=== PATIENT | female | born 1985 | race Caucasian/White ===

== ENCOUNTER 2017-04-07 11:16 | Emergency (ER) | payer MEDICAID ==
[2017-04-07 11:27] VITALS: BP 113/74; PULSE 82; RESP 18; TEMP 98; O2SAT 97
--- NOTE | 2017-04-07 11:39 | EDPHY ---
HPI/HX/ROS/PE/MDM Narrative: CHIEF COMPLAINT: "Pain everywhere" HPI: The patient is a 32-year-old female with a history of chronic abdominal pain and fibromyalgia. She states that she has been experiencing sharp pain essentially over her whole body including both arms and both legs. Last night she also experience the sensation in her head. Patient has been seen by her primary care doctor a few weeks ago and an MRI was scheduled. The patient apparently tried to do the MRI but did not feel ready to undergo the procedure at that time. She tells me this was to rule out MS. The patient denies change in vision, numbness, weakness or tingling of any body part, chest pain, fever, vomiting, new abdominal pain, recent trauma. REVIEW OF SYSTEMS: Aside from elements discussed in the HPI, a comprehensive 10-point review of systems was reviewed and is negative. PMH: Includes fibromyalgia, chronic abdominal pain, sphincter of Oddi dysfunction. SOCIAL HISTORY: Denies alcohol or drug abuse. Mother for. PHYSICAL EXAM: General:Patient is alert, in no acute distress. ENT:Eyes are normal to inspection. ENT inspection normal. Neck: Normal inspection. Full range of motion. Respiratory:No respiratory distress. Breath sounds normal bilaterally. Cardiovascular: Regular rate and rhythm. Strong peripheral pulses. Normal cap refill. Abdomen:The abdomen is nontender to palpation. There are no peritoneal signs. There are normal bowel sounds. Back: Normal to inspection. No tenderness to palpation. Skin: Normal color. No rash. Warm and dry. Numerous tattoos. Extremities: Normal appearance. Full range of motion. Neuro: Oriented x3. Normal motor function. Normal sensory function. No pronator drift. Cranial nerves intact. 5/5 strength to all joints upper and lower extremities bilaterally. Normal gait. MDM: This patient presents essentially with total body pain. There are no localizing features common nor any neurologic deficits. I offered her a CT scan of the head but she declines this. She has an MRI brain already scheduled which I think would be the best test for her. I do not think blood work is indicated. Of note, the patient has a history of multiple outpatient prescriptions for narcotics. Her initial triage complaint was her request for pain medications. She did not request pain medicine specifically to me. She is comfortable with the plan to be discharged and requested no additional interventions. Etiology of her complaints is unclear, but I see no evidence of subarachnoid hemorrhage, CVA, brain tumor, acute head trauma or infectious process. The patient understands that by refusing CT scan further workup that I am unable to rule out potentially serious life-threatening injury. General Initial Vital Signs: Initial Vital Signs Temperature (C) 36.6 C 04/07/17 11:25 Heart Rate 82 04/07/17 11:25 Respiratory Rate 18 04/07/17 11:25 Blood Pressure 113/74 04/07/17 11:25 O2 Sat (%) 97 04/07/17 11:25 O2 Delivery Mode Room Air Allergies/Adverse Reactions: morphine [Morphine] Allergy (Severe, Verified 07/14/15 09:43) Hives prochlorperazine edisylate [From Compazine] Allergy (Severe, Verified 07/14/15 09:43) HIVES, SHAKES VOMITING prochlorperazine maleate [From Compazine] Allergy (Severe, Verified 07/14/15 09: 43) HIVES, SHAKES VOMITING promethazine HCl [From Phenergan] Allergy (Severe, Verified 07/14/15 09:43) fentanyl [Fentanyl] Allergy (Intermediate, Verified 07/14/15 09:43) NAUSEA Home Medications: Medication Instructions Recorded OXYCODONE HCL 15 mg PO PRN PRN 09/17/11 Departure - Departure Disposition: Home, Routine, Self-Care Clinical Impression: Headache Condition: Good Instructions: Acute Headache (ED) Additional Instructions: Follow-up with your primary doctor within 72 hours for re-evaluation. Return to the ED for fever, severe pain, numbness, weakness or change in vision. We recommend you undergo an MRI as planned, as soon as possible. Referrals: NONE *PRIMARY CARE P,. [Unknown] - As per Instructions
== END 2017-04-07 11:42 | disposition home or self-care (01) ==
LOC: CED 11:16
DX: M54.32 Sciatica, left side (principal); M54.9 Dorsalgia, unspecified

== ENCOUNTER 2017-07-29 11:42 | Emergency (ER) | payer MEDICAID ==
[2017-07-29 11:52] VITALS: BP 109/67; PULSE 84; RESP 16; TEMP 98.1; O2SAT 96
--- NOTE | 2017-07-29 12:06 | EDPHY ---
H & P Stated Complaint: vagianal irritation/pain x 1 week; now worse with "bumps"; no discharge Time Seen by Provider: 07/29/17 11:59 HPI/ROS: CHIEF COMPLAINT: Vaginal pain HISTORY OF PRESENT ILLNESS: The patient is a 32-year-old female who comes to the emergency department complaining of vaginal pain that began last night and is worsened this morning. She denies discharge but states that she does have some bumps on her labia. She last had sex about a month ago with her but they are and she is not sure that he has not slept with anyone else. She has not had any urinary symptoms. She denies risk of . She states that her tubes are tied. No abdominal pain. No fever. No GI symptoms. No bleeding. REVIEW OF SYSTEMS: Constitutional: denies: chills, fever, recent illness, recent injury EENTM: denies: blurred vision, double vision, nose congestion Respiratory: denies: cough, shortness of breath Cardiac: denies: chest pain, irregular heart rate, lightheadedness, palpitations Gastrointestinal/Abdominal: denies: abdominal pain, diarrhea, nausea, vomiting, blood streaked stools Genitourinary: See HPI Musculoskeletal: denies: joint pain, muscle pain Skin: denies: lesions, rash, jaundice, bruising Neurological: denies: headache, numbness, paresthesia, tingling, dizziness, weakness Hematologic/Lymphatic: denies: blood clots, easy bleeding, easy bruising Immunologic/allergic: denies: HIV/AIDS, transplant EXAM: GENERAL: Well-appearing, well-nourished and in no acute distress. HEAD: Atraumatic, normocephalic. EYES: Pupils equal round and reactive to light, extraocular movements intact, sclera anicteric, conjunctiva are normal. ENT: TMs normal, nares patent, oropharynx clear without exudates. Moist mucous membranes. NECK: Normal range of motion, supple without lymphadenopathy or JVD. LUNGS: Breath sounds clear to auscultation bilaterally and equal. No wheezes rales or rhonchi. HEART: Regular rate and rhythm without murmurs, rubs or gallops. ABDOMEN: Soft, nontender, normoactive bowel sounds. No guarding, no rebound. No masses appreciated. : 1 single visible external lesion, dark pigmentation, slightly tender. Macular, vaginal tenderness with exam, mild cervical motion tenderness, white discharge BACK: No CVA tenderness, no spinal tenderness, step-offs or deformities EXTREMITIES: Normal range of motion, no pitting or edema. No clubbing or cyanosis. NEUROLOGICAL: Cranial nerves II through XII grossly intact. Normal speech, normal gait. 5/5 strength, normal movement in all extremities, normal sensation PSYCH: Normal mood, normal affect. SKIN: Warm, dry, normal turgor, no visible rashes or lesions. Source: Patient Exam Limitations: No limitations - Personal History LMP (Females 10-55): Over 28 Days Ago Current Tetanus/Diphtheria Vaccine: Yes - Medical/Surgical History Hx Asthma: No Hx Chronic Respiratory Disease: No Hx Diabetes: No Hx Cardiac Disease: No Hx Renal Disease: No Hx Cirrhosis: No Hx Alcoholism: No Hx HIV/AIDS: No Hx Splenectomy or Spleen Trauma: No Other PMH: GALL BLADDER, SPHINCTEROTOMY, JAW SURG, C/S, APPY, TONSILECTOMY, ABD ADHESIONS, FIBROMYALGIA - Family History Significant Family History: No pertinent family hx - Social History Smoking Status: Former smoker Alcohol Use: Sober Constitutional: Initial Vital Signs Temperature (C) 36.7 C 07/29/17 11:48 Heart Rate 84 07/29/17 11:48 Respiratory Rate 16 07/29/17 11:48 Blood Pressure 109/67 07/29/17 11:48 O2 Sat (%) 96 07/29/17 11:48 O2 Delivery Mode Room Air Allergies/Adverse Reactions: morphine [Morphine] Allergy (Severe, Verified 07/29/17 11:53) Hives prochlorperazine edisylate [From Compazine] Allergy (Severe, Verified 07/29/17 11:53) HIVES, SHAKES VOMITING prochlorperazine maleate [From Compazine] Allergy (Severe, Verified 07/29/17 11: 53) HIVES, SHAKES VOMITING promethazine HCl [From Phenergan] Allergy (Severe, Verified 07/29/17 11:53) fentanyl [Fentanyl] Allergy (Intermediate, Verified 07/29/17 11:53) NAUSEA Home Medications: Medication Instructions Recorded Azithromycin [Zithromax Oral 1 gm PO ONCE #1 packet 07/29/17 Liquid] Cefixime [Suprax] 400 mg PO ONCE #1 capsule 07/29/17 Doxycycline Hyclate [Vibramycin] 100 mg PO BID #30 cap 07/29/17 metroNIDAZOLE [Flagyl] 500 mg PO BID #20 tab 07/29/17 Medical Decision Making ED Course/Re-evaluation: The patient has mild cervical motion tenderness and discharge. I will treat her with antibiotics. She will follow up with her regular physician. We discussed indications for returning. She has no abdominal tenderness on exam. 12:30 p.m. the patient is refusing antibiotics here especially the IM injection. She would prefer to get the results and then the treatment. I will prescribe her azithromycin and Suprax for gonorrhea, doxycycline for Chlamydia and Flagyl for bacterial vaginosis. She was given this information in Nursing instructions Differential Diagnosis: Partial list of the Differential diagnosis considered include but were not limited to; pelvic inflammatory disease, abscess and although unlikely based on the history and physical exam, I also considered , urinary tract infection, constipation, diarrhea, ovarian cyst, ovarian torsion. I discussed these differential diagnoses and the plan with the patient as well as the usual and expected course. The patient understands that the diagnosis is provisional and that in medicine we are not always correct and that further workup is often warranted. Usual and customary warnings were given. All of the patient's questions were answered. The patient was instructed to return to the emergency department should the symptoms at all worsen or return, otherwise to followup with the physician as we discussed. - Data Points Laboratory Results: 07/29/17 07/29/17 07/29/17 12:20 12:20 12:20 [place] species DNA Pending C.trachomatis RNA (TMA) Pending Gardnerella DNA Probe Pending HSV Source Description Pending HSV I DNA PCR Pending HSV II DNA PCR Pending N.gonorrhoeae RNA (TMA) Pending Trichomonas DNA Probe Pending Medications Given: Discontinued Medications Ceftriaxone Sodium (Rocephin 250mg Vial) 250 mg IM EDNOW ONE PRN Reason: Protocol Stop: 07/29/17 12: Last Admin: 07/29/17 12:38 Dose: Not Given Doxycycline Hyclate (Doxycycline Hyclate) 100 mg PO EDNOW ONE PRN Reason: Protocol Stop: 07/29/17 12:17 Last Admin: 07/29/17 12:38 Dose: Not Given Metronidazole (Flagyl) 500 mg PO EDNOW ONE PRN Reason: Protocol Stop: 07/29/17 12:17 Last Admin: 07/29/17 12:38 Dose: Not Given Departure - Departure Disposition: Home, Routine, Self-Care Clinical Impression: Pelvic inflammatory disease (PID) Condition: Fair Instructions: Pelvic Inflammatory Disease (ED) Additional Instructions: You have refused antibiotic treatment suggested at this until culture results return. This can take 5 days. You have been given 4 different prescriptions if needed to fill Metronidazole is for a bacterial infection Doxycycline is for Chlamydia Azithromycin and Cefixime are for Gonorrhea We will contact your if any results of your cultures return positive Please follow up with your primary provider as we discussed Referrals: ERMELINDA SHEPHERD,. [Primary Care Provider] - As per Instructions Prescriptions: Azithromycin [Zithromax Oral Liquid] 1 gm PO ONCE #1 packet Cefixime [Suprax] 400 mg PO ONCE #1 capsule Doxycycline Hyclate [Vibramycin] 100 mg PO BID #30 cap metroNIDAZOLE [Flagyl] 500 mg PO BID #20 tab
[2017-07-29] MEDS ORDERED: DOXYCYCLINE HYCLATE 100 MG CAP/TAB PO ONE (12:16)
[2017-07-29] MEDS ORDERED: metroNIDAZOLE 500 MG TAB PO ONE (12:16)
[2017-07-29] MEDS ORDERED: cefTRIAXone 250 MG VIAL IM ONE (12:16)
[2017-07-31 13:16] LABS: CHLAMYDIA AMPLIFICATION GENPRB NEGATIVE (NEGATIVE)
[2017-07-31 21:38] LABS: SPECIMEN SOURCE vaginal
== END 2017-07-29 12:38 | disposition home or self-care (01) ==
LOC: CED 11:42
DX: N73.9 Female pelvic inflammatory disease, unspecified (principal); Z87.891 Personal history of nicotine dependence
CPT/HCPCS: 87529-90; J0696

== ENCOUNTER 2018-08-25 17:02 | Emergency (ER) | payer MEDICAID ==
[2018-08-25] MEDS ORDERED: CEPHALEXIN 500 MG CAP PO ONE (17:48)
--- NOTE | 2018-08-25 17:53 | EDPHY ---
H & P Time Seen by Provider: 08/25/18 17:18 HPI/ROS: CHIEF COMPLAINT: Bump on vagina HISTORY OF PRESENT ILLNESS: 33-year-old female presents emergency department reporting that she has had a painful small bump on the left side of her vagina for approximately week and half. She has been complaining of feeling poorly with headache, nausea, but no fever. She does have a history of fibromyalgia and chronic fatigue syndrome and reports that she frequently feels poorly. She denies fever, chest pain, lesions in her mouth, vomiting, urinary complaints, vaginal discharge, new sexual partners, or prior history of similar symptoms. 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 Since that time she has also been told that she did not have HSV type 2. She has no history of oral herpes simplex. No fever, chest pain, shortness of breath, palpitations, vomiting, diarrhea, urinary complaints, lightheadedness. REVIEW OF SYSTEMS: A comprehensive 10 system review of systems was reviewed and is otherwise negative aside from elements mentioned in the history of present illness. PAST MEDICAL HISTORY: Fibromyalgia. Status post tubal ligation. SOCIAL HISTORY: Nonsmoker, no alcohol, no marijuana, no illicit drug use. Reports no known new sexual partners, has been with the same partner for 8 years. VITAL SIGNS Reviewed by me. GENERAL: Well-developed, well-nourished, resting comfortably in no respiratory distress. Pleasant. Patient looks well. Nontoxic. HEENT: Atraumatic. Eyes: No icterus, no injection. Mouth: moist mucous membranes. No lesions seen on the lips or tongue. No erythema or lesions. Neck : supple with no adenopathy. LUNGS: Clear to auscultation bilaterally, no wheezes, rhonchi or rales. CARDIAC: Regular rate and rhythm, no rubs, murmurs or gallops. ABDOMEN: Soft, mild diffuse tenderness which patient states is common for her to have. Nondistended. No guarding or rebound. BACK: No CVA tenderness. : 4 mm in diameter pustular lesion is present on the labia majora on the left. Tender to palpation. I see no Bartholin's gland cyst. I see no other lesions. It is not ulcerated. No grouped set of lesions. Lesion is not umbilicated or vesicular. Small amount of white vaginal discharge is present on speculum exam. No vaginal. EXTREMITIES: No trauma. No edema. Range of motion is normal throughout. NEURO: Alert and oriented, grossly nonfocal. SKIN: Warm and dry, no rash. PSYCHIATRIC: Normal mentation, no agitation. Smoking Status: Former smoker Constitutional: Initial Vital Signs Temperature (C) 37.1 C 08/25/18 17:18 Heart Rate 80 08/25/18 17:18 Respiratory Rate 14 08/25/18 17:18 Blood Pressure 98/71 L 08/25/18 17:18 O2 Sat (%) 93 08/25/18 17:18 O2 Delivery Mode Room Air Allergies/Adverse Reactions: morphine [Morphine] Allergy (Severe, Verified 08/25/18 17:16) Hives prochlorperazine edisylate [From Compazine] Allergy (Severe, Verified 08/25/18 17:16) HIVES, SHAKES VOMITING prochlorperazine maleate [From Compazine] Allergy (Severe, Verified 08/25/18 17: 16) HIVES, SHAKES VOMITING promethazine HCl [From Phenergan] Allergy (Severe, Verified 08/25/18 17:16) fentanyl [Fentanyl] Allergy (Intermediate, Verified 08/25/18 17:16) NAUSEA Home Medications: Medication Instructions Recorded Cephalexin [Keflex (*)] 500 mg PO TID #21 cap 08/25/18 Oxycodone HCl PRN 08/25/18 Medical Decision Making ED Course/Re-evaluation: Vaginal culture and the BV studies were sent. I discussed with the patient my impression that this appears to be a pustular lesion. Does not to me looked to be herpetic, syphilis, or vaginal warts. May represent vaginal acne, pustule, or folliculitis. Patient does states she had 1 other lesion that seem to be involving hair follicle on her pubic area, which self-resolved. Patient was instructed to use Sitz bath, topical anesthetic, and was offered antibiotics. She declined antibiotics. She declined local I and D of the pustule. She will follow up with her primary care physician next week for the results of the vaginal studies as well as further evaluation of the lesion. Differential Diagnosis: Differential diagnoses for the patient's symptom complex was considered including but not limited to herpes simplex, syphilis, genital warts, Bartholin gland cyst, skin abscess. - Data Points Medications Given: Discontinued Medications Cephalexin HCl (Keflex) 500 mg PO EDNOW ONE PRN Reason: Protocol Stop: 08/25/18 17:49 Last Admin: 08/25/18 18:06 Dose: Not Given Point of Care Test Results: Urine Dip Collection Date 08/25/18 Collection Time 17:50 Specific [place] (1.002-1.030) 1.010 PH (5.0-7.5) 7.0 Leukocytes (Negative) Negative Nitrites (Negative) Negative Protein (Negative) Negative Glucose (Negative) Negative Ketones (Negative) Negative Urobilnogen (0.2-1.0 EU) 0.2 Bilirubin (Negative) Negative Blood (Negative) Negative Departure - Departure Disposition: Home, Routine, Self-Care Clinical Impression: Vulvar papule, Vulvar lesion Condition: Good Instructions: Abscess (ED) Additional Instructions: The lesion on the vulva does not appear to me to be a sexually transmitted disease such as herpes simplex, syphilis, or GC/chlamydia. It appears to be the start of a abscess or pustule. I suggest Sitz baths, which is simply sitting in a warm bath tub, 2 to 3 times a day. I suggest ibuprofen for discomfort. Please take the antibiotic as directed. Keflex 500 mg three times daily for 7 days. Please follow up with [facility] next week. They will be able to review the results of the vaginal culture and see if you need on other antibiotics. Return to the emergency department or seek care urgently if the bump is growing despite the above treatment, becoming more tender, or you develop other lesions. You may obtain an [id number] treatment for hemorrhoid relief that contains a local anesthetic and use this on the vulvar area. It may contain a medicine called nupercaine or dibucaine. Referrals: RICKY REYES [Primary Care Provider] - As per Instructions Prescriptions: Cephalexin [Keflex (*)] 500 mg PO TID #21 cap
[2018-08-25 18:16] VITALS: BP 104/68
== END 2018-08-25 18:14 | disposition home or self-care (01) ==
LOC: CED 17:02
DX: N90.89 Other specified noninflammatory disorders of vulva and perineum (principal); Z87.891 Personal history of nicotine dependence